=== PATIENT | female | born 1960 | race Caucasian/White ===

== ENCOUNTER 2022-10-30 14:34 | Inpatient (IN) | payer BC ==
[~2022-10-30] VITALS: Ht 162.6 cm; Wt 87.4 kg
[2022-10-30] MEDS ORDERED: NS 1,000 ML IV ONE (15:40)
[2022-10-30] MEDS ORDERED: ISOVUE-370 76% 100ML VIAL As Ordered ONE (16:06)
[2022-10-30 16:25] LABS: BASO % 0.6 % (0.0-1.0); EOS # 0.1 10^3/uL (0.0-0.5); HEMATOCRIT 40.1 % (36.0-47.0); HEMOGLOBIN 12.9 g/dl (12.0-15.5); LYMPH # 1.1 10^3/uL (1.5-5.0); MEAN CORPUSCULAR HEMOGLOBIN 29.1 pg (27.0-33.0); MEAN CORPUSCULAR HGB CONC 32.2 g/dl (32.0-36.5); MEAN CORPUSCULAR VOLUME 90.3 fl (80.0-96.0); MONO # 0.6 10^3/uL (0.0-0.8); MONO % 7.7 % (2.0-8.0); NEUTROPHILS # 5.3 10^3/uL (1.5-8.5); NEUTROPHILS % 74.6 % (36.0-66.0); PLATELET COUNT, AUTOMATED 294 10^3/uL (150-450); RED BLOOD COUNT 4.44 10^6/uL (4.00-5.40); WHITE BLOOD COUNT 7.1 10^3/uL (4.0-10.0)
[2022-10-30 16:48] LABS: ALBUMIN 3.3 G/DL (3.2-5.2); BILIRUBIN,DIRECT 0.1 MG/DL (<0.4); BILIRUBIN,TOTAL 0.6 MG/DL (0.3-1.2); TOTAL PROTEIN 6.7 G/DL (5.7-8.2)
[2022-10-30] MEDS ORDERED: ONDANSETRON 4MG 2ML VIAL IV ONE (18:10)
[2022-10-30] MEDS ORDERED: MORPHINE 2 MG/ML 1ML VIAL IV ONE (18:10)
[2022-10-30] MEDS ORDERED: oxyCODONE 5MG TAB PO PRN (18:25)
[2022-10-30] MEDS ORDERED: ONDANSETRON 4MG 2ML VIAL IV PRN (18:25)
[2022-10-30] MEDS ORDERED: MORPHINE 2 MG/ML 1ML VIAL IV PRN (18:25)
[2022-10-30] MEDS ORDERED: TEMO0.0517 TOP (19:04)
[2022-10-30] MEDS ORDERED: LEVO75TA4 PO (19:04)
[2022-10-30] MEDS ORDERED: TRET0.0540 TOP (19:04)
[2022-10-30] MEDS ORDERED: FIOR1CAP PO (19:05)
[2022-10-30] MEDS ORDERED: ACET-897 PO (19:08)
[2022-10-30] MEDS ORDERED: MAGN400T2 PO (19:08)
[2022-10-30] MEDS ORDERED: D32000CA PO (19:08)
[2022-10-30] MEDS ORDERED: SUPECAP7 PO (19:08)
[2022-10-30] MEDS ORDERED: VITA500C24 PO (19:08)
[2022-10-30] MEDS ORDERED: HOME MED LIST COMPLETE! XX SCH (19:10)
[2022-10-30 19:46] LABS: RSV AMPLIFICATION NEGATIVE (NEGATIVE)
[2022-10-30] MEDS ORDERED: LABETALOL 100MG/20ML VIAL IV ONE (21:35)
[2022-10-30] MEDS: HEPARIN SOD (PORCINE) 5000UNITS/ML 1ML VIAL/SYRINGE SC SCH (22:25)
[2022-10-30] MEDS ORDERED: TEMAZEPAM 7.5 MG CAP PO PRN (22:40)
[2022-10-30] MEDS ORDERED: **hydrALAZINE** 10 MG TAB PO PRN (22:50)
[2022-10-30 23:05] VITALS: BP 139/79
[2022-10-31] MEDS: NS 1,000 ML IV SCH ×2 (00:32→09:01)
[2022-10-31] MEDS: ACETAMINOPHEN TAB 650MG DOSE (2X325MG) PO PRN ×2 (02:54→15:50)
[2022-10-31] MEDS: HEPARIN SOD (PORCINE) 5000UNITS/ML 1ML VIAL/SYRINGE SC SCH (05:11)
[2022-10-31 05:32] VITALS: BP 134/77
[2022-10-31 06:09] LABS: HEMATOCRIT 36.8 % (36.0-47.0); HEMOGLOBIN 11.7 g/dl (12.0-15.5); MEAN CORPUSCULAR HGB CONC 31.8 g/dl (32.0-36.5); MEAN CORPUSCULAR VOLUME 91.3 fl (80.0-96.0); PLATELET COUNT, AUTOMATED 280 10^3/uL (150-450); RED BLOOD COUNT 4.03 10^6/uL (4.00-5.40); WHITE BLOOD COUNT 7.4 10^3/uL (4.0-10.0)
[2022-10-31 06:12] LABS: INR 1.04; PROTHROMBIN TIME 13.8 SECONDS (12.5-14.5)
[2022-10-31 06:13] LABS: PARTIAL THROMBOPLASTIN TIME 31.2 SECONDS (24.8-34.2)
[2022-10-31 06:31] LABS: ALBUMIN 2.8 G/DL (3.2-5.2); ALKALINE PHOSPHATASE 171 U/L (46-116); ALT/SGPT 68 U/L (7.0-40); AST/SGOT 71 U/L (<34); BILIRUBIN,TOTAL 0.5 MG/DL (0.3-1.2); BLOOD UREA NITROGEN 9 MG/DL (9-23); CALCIUM LEVEL 8.1 MG/DL (8.3-10.6); CARBON DIOXIDE LEVEL 30 MMOL/L (20-31); CHLORIDE LEVEL 105 MMOL/L (98-107); CREATININE FOR GFR 0.61 MG/DL (0.55-1.30); GLOMERULAR FILTRATION RATE > 60.0 (>45); GLUCOSE, FASTING 117 MG/DL (74-106); MAGNESIUM LEVEL 1.9 MG/DL (1.8-2.4); POTASSIUM SERUM 3.9 MMOL/L (3.5-5.1); SODIUM LEVEL 141 MMOL/L (136-145); TOTAL PROTEIN 5.8 G/DL (5.7-8.2)
[2022-10-31] MEDS ORDERED: LIDOCAINE 1% MDV 20ML VIAL As Ordered ONE (13:18)
[2022-10-31 14:00] VITALS: BP 145/79
[2022-10-31 14:45] VITALS: BP 148/80
[2022-10-31 15:30] VITALS: BP 148/76
[2022-10-31 16:00] VITALS: BP 145/74
[2022-10-31] MEDS ORDERED: ACET-897 PO (16:24)
[2022-10-31] MEDS ORDERED: OXYC-517 PO (16:24)
[2022-10-31 17:16] LABS: CA19-9 TUMOR MARKER,CARBOHYDRA 17.1 U/ML (<35.0)
== END 2022-10-31 17:45 | disposition home or self-care (01) ==
LOC: M ED 14:34 → M ED INP 18:24 → M MS5PR 23:00
PROVIDERS: ADMIT Family Medicine; ATTEND Family Medicine
PROC: 0FB13ZX Excision of Right Lobe Liver, Percutaneous Approach, Diagnostic (ICD-10-PCS; principal; 2022-10-31 13:00)
DX: K76.89 Other specified diseases of liver (principal); R65.10 Systemic inflammatory response syndrome (SIRS) of non-infectious origin without acute organ dysfunction; E03.9 Hypothyroidism, unspecified; C48.2 Malignant neoplasm of peritoneum, unspecified; E55.9 Vitamin D deficiency, unspecified; K57.90 Diverticulosis of intestine, part unspecified, without perforation or abscess without bleeding; M54.81 Occipital neuralgia; R10.32 Left lower quadrant pain; R19.03 Right lower quadrant abdominal swelling, mass and lump; N83.8 Other noninflammatory disorders of ovary, fallopian tube and broad ligament; G43.909 Migraine, unspecified, not intractable, without status migrainosus; Z79.890 Hormone replacement therapy; Z79.899 Other long term (current) drug therapy; Z88.2 Allergy status to sulfonamides

== ENCOUNTER → 2022-11-16 | Outpatient (CLI) | payer BC ==
[~2022-11-16] MED LIST: ACET-897 PO; AMLO25TA PO; D32000CA PO; FIOR1CAP PO; LEVO75TA4 PO; LIDOCAINE 1% MDV 20ML VIAL As Ordered ONE; MAGN400T2 PO; OXYC-517 PO; SUPECAP7 PO; TEMO0.0517 TOP; TRET0.0540 TOP; VITA500C24 PO
[2022-11-16 09:00] VITALS: BP 130/65
== END ==
LOC: M IRPRO 08:00
PROVIDERS: ATTEND Internal Medicine Medical Oncology
DX: R22.1 Localized swelling, mass and lump, neck (principal)

== ENCOUNTER → 2022-11-22 | Outpatient (CLI) | payer BC ==
[~2022-11-22] MED LIST changes: +ISOVUE-370 76% 100ML VIAL As Ordered ONE; -LIDOCAINE 1% MDV 20ML VIAL As Ordered ONE
== END ==
LOC: M RAD 14:30
PROVIDERS: ATTEND Internal Medicine Medical Oncology
DX: K76.89 Other specified diseases of liver (principal)

== ENCOUNTER → 2022-11-29 | Outpatient (CLI) | payer BC ==
[~2022-11-29] MED LIST changes: -ISOVUE-370 76% 100ML VIAL As Ordered ONE
[2022-11-29 11:28] LABS: ALBUMIN 3.4 G/DL (3.2-5.2); ALKALINE PHOSPHATASE 98 U/L (46-116); ALT/SGPT 17 U/L (7.0-40); AST/SGOT 18 U/L (<34); BILIRUBIN,DIRECT 0.2 MG/DL (<0.4); BILIRUBIN,TOTAL 0.5 MG/DL (0.3-1.2); TOTAL PROTEIN 6.6 G/DL (5.7-8.2)
[2022-11-29 11:38] LABS: HEPATITIS B SURFACE ANTIGEN NEGATIVE (NEGATIVE)
== END ==
LOC: M LAB 09:36
PROVIDERS: ATTEND Internal Medicine Gastroenterology
DX: R94.5 Abnormal results of liver function studies (principal)

== ENCOUNTER → 2022-12-25 | Outpatient (CLI) | payer BC ==
[~2022-12-25] MED LIST changes: +DIGECAP7 PO; +GING1CAP PO; +NAPR220C23 PO; +PROBCAP14 PO; +RA M200C4 PO; +TURM500C PO; +VITA1CAP20 PO; +VITA200038 PO; +VITA400T26 PO
== END ==
LOC: M LABSMTC 11:28
PROVIDERS: ATTEND Anesthesiology
DX: Z01.812 Encounter for preprocedural laboratory examination (principal); Z11.52 Encounter for screening for COVID-19

== ENCOUNTER → 2022-12-27 | Outpatient (CLI) | payer BC ==
[~2022-12-27] MED LIST changes: +FAMO20TA PO; +LIDOCAINE 1% MDV 20ML VIAL As Ordered ONE; +MIDAZOLAM INJ 2MG/2ML VIAL As Ordered ONE; +NS 1,000 ML IV SCH; +ceFAZolin 2 GM/D5W 50 ML IV BAG As Ordered ONE; +ceFAZolin SOD 2 GM in IV 1 EA IV ONE; +diphenhydrAMINE 50MG/ML VIAL As Ordered ONE; +fentaNYL 100 MCG/2 ML INJECTION As Ordered ONE
[2022-12-27 14:53] VITALS: BP 142/77
== END ==
LOC: M IRPRO 10:38
PROVIDERS: ATTEND Internal Medicine Medical Oncology
DX: C80.1 Malignant (primary) neoplasm, unspecified (principal)
CPT/HCPCS: 36561; 99152; 99153; C1769; C1788; C1894; J0690; J1200; J2250; J3010

== ENCOUNTER → 2022-12-29 | Outpatient (REF) | payer BC ==
[~2022-12-29] MED LIST changes: -LIDOCAINE 1% MDV 20ML VIAL As Ordered ONE; -MIDAZOLAM INJ 2MG/2ML VIAL As Ordered ONE; -NS 1,000 ML IV SCH; +ONDA8TAB8 PO; +PROC10TA5 PO; -ceFAZolin 2 GM/D5W 50 ML IV BAG As Ordered ONE; -ceFAZolin SOD 2 GM in IV 1 EA IV ONE; -diphenhydrAMINE 50MG/ML VIAL As Ordered ONE; -fentaNYL 100 MCG/2 ML INJECTION As Ordered ONE
[2022-12-29 17:18] LABS: THYROID STIMULATING HORMONE 5.186 uIU/ML (0.55-4.78)
[2022-12-29 17:19] LABS: FREE T4 1.27 NG/DL (0.89-1.76)
[2022-12-29 17:51] LABS: HEMOGLOBIN A1c 5.8 % (4.0-6.0)
== END ==
LOC: M LAB REF 16:12
PROVIDERS: ATTEND Nurse Practitioner Family
DX: Z68.32 Body mass index [BMI] 32.0-32.9, adult (principal)

== ENCOUNTER → 2023-01-16 | Outpatient (CLI) | payer BC | LOC: M IRPRO 13:17 | PROVIDERS: ATTEND Internal Medicine Medical Oncology | DX: R18.8 Other ascites (principal); R93.2 Abnormal findings on diagnostic imaging of liver and biliary tract ==

== ENCOUNTER → 2023-01-23 | Outpatient (POV) | payer BC ==
[~2023-01-23] VITALS: Ht 162.6 cm; Wt 82.0 kg
[~2023-01-23] MED LIST changes: +HYDR25SU61; +LEVO100T5 PO; +NEUR100C PO
[2023-01-23 08:20] VITALS: BP 140/80
== END ==
LOC: M IRPOV 07:58
PROVIDERS: ATTEND Radiology Diagnostic Radiology
DX: Z45.2 Encounter for adjustment and management of vascular access device (principal); Z88.1 Allergy status to other antibiotic agents; Z88.2 Allergy status to sulfonamides

== ENCOUNTER → 2023-02-13 | Outpatient (POV) | payer BC ==
[~2023-02-13] VITALS: Ht 162.6 cm; Wt 82.7 kg
[~2023-02-13] MED LIST changes: +CLAR10CA3 PO; +MAGICMW SSP
[2023-02-13 12:35] VITALS: BP 154/82
== END ==
LOC: M IRPOV 12:21
PROVIDERS: ATTEND Radiology Diagnostic Radiology
DX: Z45.2 Encounter for adjustment and management of vascular access device (principal); Z88.2 Allergy status to sulfonamides

== ENCOUNTER → 2023-02-27 | Outpatient (CLI) | payer BC ==
[~2023-02-27] MED LIST changes: +GASTROGRAFIN SOLUTION 30ML As Ordered ONE; +ISOVUE-370 76% 100ML VIAL As Ordered ONE
== END ==
LOC: M RAD 11:39
PROVIDERS: ATTEND Internal Medicine Medical Oncology
DX: C48.2 Malignant neoplasm of peritoneum, unspecified (principal)
CPT/HCPCS: 71260; 74177; Q9963; Q9967

== ENCOUNTER → 2023-04-09 | Outpatient (REF) | payer BC ==
[~2023-04-09] MED LIST changes: +DEXA4TA PO; -GASTROGRAFIN SOLUTION 30ML As Ordered ONE; -ISOVUE-370 76% 100ML VIAL As Ordered ONE
== END ==
LOC: M LAB REF 16:39
PROVIDERS: ATTEND Nurse Practitioner Family
DX: E03.9 Hypothyroidism, unspecified (principal); R73.01 Impaired fasting glucose

== ENCOUNTER → 2023-04-23 | Outpatient (CLI) | payer BC ==
[~2023-04-23] MED LIST changes: +GASTROGRAFIN SOLUTION 30ML As Ordered ONE; +ISOVUE-370 76% 100ML VIAL As Ordered ONE; +METF-838 PO
== END ==
LOC: M RAD 08:24
PROVIDERS: ATTEND Internal Medicine Hematology & Oncology
DX: C48.2 Malignant neoplasm of peritoneum, unspecified (principal)
CPT/HCPCS: 71260; 74177; Q9963; Q9967

== ENCOUNTER → 2023-05-08 | Outpatient (REF) | payer BC ==
[~2023-05-08] MED LIST changes: -GASTROGRAFIN SOLUTION 30ML As Ordered ONE; -ISOVUE-370 76% 100ML VIAL As Ordered ONE
== END ==
LOC: M LAB REF 17:52
PROVIDERS: ATTEND Nurse Practitioner Family
DX: E83.42 Hypomagnesemia (principal)

== ENCOUNTER → 2023-07-09 | Outpatient (REF) | payer BC, MEDICARE ==
[~2023-07-09] MED LIST changes: -HYDR25SU61; +HYDR25SU61 PR
== END ==
LOC: M LAB REF 16:28
PROVIDERS: ATTEND Nurse Practitioner Family
DX: E11.9 Type 2 diabetes mellitus without complications (principal); E03.9 Hypothyroidism, unspecified

== ENCOUNTER → 2023-08-22 | Outpatient (CLI) | payer MEDICARE, BC ==
[~2023-08-22] MED LIST changes: +GASTROGRAFIN SOLUTION 30ML ONE; +ISOVUE-370 76% 100ML VIAL ONE
== END ==
LOC: M PLAIMG 09:10
PROVIDERS: ATTEND Internal Medicine Hematology & Oncology
DX: C48.2 Malignant neoplasm of peritoneum, unspecified (principal)
CPT/HCPCS: 71260; 74177; Q9963; Q9967

== ENCOUNTER 2023-10-12 18:00 | Emergency (ER) | payer MEDICARE, BC ==
[~2023-10-12] VITALS: Ht 162.6 cm; Wt 80.7 kg
[~2023-10-12 18:00] MED LIST changes: -GASTROGRAFIN SOLUTION 30ML ONE; -ISOVUE-370 76% 100ML VIAL ONE
[2023-10-12 18:01] VITALS: TEMP 98.5
[2023-10-12] MEDS ORDERED: ISOVUE-370 76% 100ML VIAL As Ordered ONE (18:53)
[2023-10-12 19:00] VITALS: BP 154/77; O2SAT 97
[2023-10-12] MEDS ORDERED: AMOX875T2 PO (20:10)
[2023-10-12] MEDS ORDERED: AUGMENTIN 875 MG TAB PO ONE (20:10)
== END 2023-10-12 20:22 | disposition home or self-care (01) ==
LOC: M ED 18:00
DX: K57.32 Diverticulitis of large intestine without perforation or abscess without bleeding (principal); I10 Essential (primary) hypertension; K21.9 Gastro-esophageal reflux disease without esophagitis; E03.9 Hypothyroidism, unspecified; Z79.899 Other long term (current) drug therapy; Z88.2 Allergy status to sulfonamides
CPT/HCPCS: 74177; 80053; 83690; 85025; 99284; Q9967

== ENCOUNTER → 2023-10-31 | Outpatient (CLI) | payer MEDICARE, BC ==
[~2023-10-31] MED LIST changes: +AMOX875T2 PO; +METO5TAB2 PO; +PRED5PAK2 PO
== END ==
LOC: M WHC 14:33
PROVIDERS: ATTEND Nurse Practitioner Family
DX: Z12.31 Encounter for screening mammogram for malignant neoplasm of breast (principal)

== ENCOUNTER 2023-11-06 19:51 | Inpatient (IN) | payer MEDICARE, BC ==
[~2023-11-06] VITALS: Ht 165.1 cm; Wt 78.0 kg
[2023-11-06 20:50] LABS: BASO % 0.3 % (0.0-1.0); EOS % 0.5 % (0.0-3.0); HEMATOCRIT 40.6 % (36.0-47.0); LYMPH # 0.9 10^3/uL (1.5-5.0); LYMPH % 15.1 % (24.0-44.0); MEAN CORPUSCULAR HEMOGLOBIN 32.8 pg (27.0-33.0); MEAN CORPUSCULAR HGB CONC 34.5 g/dl (32.0-36.5); MEAN CORPUSCULAR VOLUME 95.1 fl (80.0-96.0); MONO # 0.6 10^3/uL (0.0-0.8); MONO % 10.1 % (2.0-8.0); NEUTROPHILS # 4.3 10^3/uL (1.5-8.5); NEUTROPHILS % 73.7 % (36.0-66.0); PLATELET COUNT, AUTOMATED 210 10^3/uL (150-450); RED BLOOD COUNT 4.27 10^6/uL (4.00-5.40); WHITE BLOOD COUNT 5.8 10^3/uL (4.0-10.0)
[2023-11-06] MEDS: ONDANSETRON 4MG 2ML VIAL IV ONE (21:00)
[2023-11-06] MEDS: PERCOCET 5MG/325MG TAB PO ONE (21:00)
[2023-11-06 21:18] LABS: LIPASE 18 U/L (12-53)
[2023-11-06 21:20] LABS: ALBUMIN 3.6 G/DL (3.2-5.2); ALKALINE PHOSPHATASE 100 U/L (46-116); ALT/SGPT 84 U/L (7.0-40); AST/SGOT 54 U/L (<34); BLOOD UREA NITROGEN 16 MG/DL (9-23); CARBON DIOXIDE LEVEL 26 MMOL/L (20-31); CHLORIDE LEVEL 101 MMOL/L (98-107); CREATININE FOR GFR 0.68 MG/DL (0.55-1.30); GLOMERULAR FILTRATION RATE > 60.0 (>45); GLUCOSE, FASTING 113 MG/DL (74-106); POTASSIUM SERUM 3.7 MMOL/L (3.5-5.1); SODIUM LEVEL 136 MMOL/L (136-145); TOTAL PROTEIN 6.6 G/DL (5.7-8.2)
[2023-11-06 21:26] LABS: RSV AMPLIFICATION NEGATIVE (NEGATIVE)
[2023-11-06] MEDS: fentaNYL 100 MCG/2 ML INJECTION IV ONE (22:30)
[2023-11-06] MEDS: GASTROGRAFIN SOLUTION 30ML PO SCH (22:30)
[2023-11-07] MEDS: PIPERACILLIN/TAZOBACTAM SOD 4.5 GM in D5W MINI-BAG PLUS 50 ML IV ONE (01:00)
[2023-11-07] MEDS ORDERED: FAMO20TA5 PO (01:22)
[2023-11-07] MEDS ORDERED: AMLO2.5T3 PO (01:22)
[2023-11-07] MEDS ORDERED: SYNT100T PO (01:22)
[2023-11-07] MEDS ORDERED: METF-838 PO (01:22)
[2023-11-07] MEDS ORDERED: HOME MED LIST COMPLETE! XX SCH (01:25)
[2023-11-07] MEDS: PROCHLORPERAZINE 10MG 2ML VIAL IV STA (01:26)
[2023-11-07] MEDS: NS 1,000 ML IV SCH ×2 (03:54→10:55)
[2023-11-07] MEDS: HYDROMORPHONE HCL 0.5 MG/ 0.5 ML SYRINGE IV PRN (04:09)
[2023-11-07 04:30] VITALS: BP 164/95; TEMP 97.2; O2SAT 97
[2023-11-07] MEDS: PIPERACILLIN/TAZOBACTAM SOD 3.375 GM in D5W MINI-BAG PLUS 50 ML IV SCH (06:06)
[2023-11-07] MEDS: LEVOTHYROXINE 100MCG TABLET (0.1MG) PO SCH (06:06)
[2023-11-07] MEDS: HEPARIN SOD (PORCINE) 5000UNITS/ML 1ML VIAL/SYRINGE SC SCH (06:06)
[2023-11-07 06:10] VITALS: BP 142/80
[2023-11-07] MEDS ORDERED: GLUCAGON INJ 1MG VIAL SC PRN (06:25)
[2023-11-07] MEDS ORDERED: DEXTROSE 50% 50ML SYRINGE IV PRN (06:25)
[2023-11-07] MEDS ORDERED: GLUCOSE 4GM CHEW TABLET PO PRN (06:25)
[2023-11-07] MEDS: INSULIN LISPRO (NovoLOG) PER UNIT SC SCH ×2 (07:30→21:00)
[2023-11-07 07:39] LABS: ALBUMIN 3.3 G/DL (3.2-5.2); ALKALINE PHOSPHATASE 96 U/L (46-116); ALT/SGPT 76 U/L (7.0-40); AST/SGOT 51 U/L (<34); BILIRUBIN,TOTAL 1.3 MG/DL (0.3-1.2); BLOOD UREA NITROGEN 15 MG/DL (9-23); CALCIUM LEVEL 8.7 MG/DL (8.3-10.6); CARBON DIOXIDE LEVEL 29 MMOL/L (20-31); CHLORIDE LEVEL 99 MMOL/L (98-107); CREATININE FOR GFR 0.72 MG/DL (0.55-1.30); GLOMERULAR FILTRATION RATE > 60.0 (>45); GLUCOSE, FASTING 128 MG/DL (74-106); POTASSIUM SERUM 3.7 MMOL/L (3.5-5.1); SODIUM LEVEL 136 MMOL/L (136-145); TOTAL PROTEIN 6.2 G/DL (5.7-8.2)
[2023-11-07] MEDS: FAMOTIDINE 20 MG TAB PO PRN (09:33)
[2023-11-07] MEDS ORDERED: MORPHINE 2 MG/ML 1ML VIAL IV PRN (10:55)
[2023-11-07] MEDS ORDERED: ISOVUE-370 76% 100ML VIAL As Ordered ONE (11:09)
[2023-11-07] MEDS: ONDANSETRON 4MG 2ML VIAL IV PRN (12:10)
[2023-11-08 07:06] LABS: ALBUMIN 2.8 G/DL (3.2-5.2); ALKALINE PHOSPHATASE 75 U/L (46-116); ALT/SGPT 48 U/L (7.0-40); AST/SGOT 19 U/L (<34); BILIRUBIN,TOTAL 0.7 MG/DL (0.3-1.2); BLOOD UREA NITROGEN 11 MG/DL (9-23); CALCIUM LEVEL 7.9 MG/DL (8.3-10.6); CARBON DIOXIDE LEVEL 27 MMOL/L (20-31); CHLORIDE LEVEL 107 MMOL/L (98-107); CREATININE FOR GFR 0.71 MG/DL (0.55-1.30); GLOMERULAR FILTRATION RATE > 60.0 (>45); GLUCOSE, FASTING 73 MG/DL (74-106); MAGNESIUM LEVEL 1.7 MG/DL (1.8-2.4); POTASSIUM SERUM 3.7 MMOL/L (3.5-5.1); SODIUM LEVEL 142 MMOL/L (136-145)
[2023-11-08 14:18] VITALS: BP 145/80; TEMP 97.5; O2SAT 96
[2023-11-08 19:59] VITALS: BP 124/67; TEMP 97.7; O2SAT 97
[2023-11-09 05:30] VITALS: BP 122/64; TEMP 97.5; O2SAT 95
[2023-11-09 07:12] LABS: ALBUMIN 2.8 G/DL (3.2-5.2); ALKALINE PHOSPHATASE 74 U/L (46-116); ALT/SGPT 34 U/L (7.0-40); AST/SGOT 11 U/L (<34); BILIRUBIN,TOTAL 0.4 MG/DL (0.3-1.2); BLOOD UREA NITROGEN < 5 MG/DL (9-23); CARBON DIOXIDE LEVEL 30 MMOL/L (20-31); CHLORIDE LEVEL 107 MMOL/L (98-107); CREATININE FOR GFR 0.56 MG/DL (0.55-1.30); GLOMERULAR FILTRATION RATE > 60.0 (>45); GLUCOSE, FASTING 113 MG/DL (74-106); MAGNESIUM LEVEL 1.6 MG/DL (1.8-2.4); POTASSIUM SERUM 3.6 MMOL/L (3.5-5.1); SODIUM LEVEL 142 MMOL/L (136-145); TOTAL PROTEIN 5.2 G/DL (5.7-8.2)
[2023-11-09] MEDS: MAG SULF 1GM/100ML (MAG RUN) 1 GM in IV 1 EA IV SCH (08:13)
[2023-11-09 08:19] VITALS: BP 128/63
[2023-11-09] MEDS: BISACODYL 10MG SUPP PR ONE (13:03)
[2023-11-09 14:00] VITALS: BP 142/85; TEMP 97.5; O2SAT 98
[2023-11-09] MEDS: DOCUSATE SODIUM 100MG CAPSULE PO SCH (14:12)
[2023-11-09 21:21] VITALS: BP 154/87; TEMP 97.5; O2SAT 97
[2023-11-09] MEDS: MIRALAX *UNIT DOSE* 17GM PACKET PO PRN (22:12)
[2023-11-10 06:00] VITALS: BP 132/67; TEMP 97.3; O2SAT 95
[2023-11-10 06:12] LABS: BASO % 0.3 % (0.0-1.0); EOS # 0.1 10^3/uL (0.0-0.5); EOS % 1.3 % (0.0-3.0); HEMATOCRIT 35.5 % (36.0-47.0); HEMOGLOBIN 12.2 g/dl (12.0-15.5); LYMPH # 0.9 10^3/uL (1.5-5.0); LYMPH % 23.3 % (24.0-44.0); MEAN CORPUSCULAR HEMOGLOBIN 32.3 pg (27.0-33.0); MEAN CORPUSCULAR HGB CONC 34.4 g/dl (32.0-36.5); MEAN CORPUSCULAR VOLUME 93.9 fl (80.0-96.0); MONO # 0.4 10^3/uL (0.0-0.8); MONO % 9.7 % (2.0-8.0); NEUTROPHILS # 2.5 10^3/uL (1.5-8.5); NEUTROPHILS % 64.6 % (36.0-66.0); PLATELET COUNT, AUTOMATED 189 10^3/uL (150-450); RED BLOOD COUNT 3.78 10^6/uL (4.00-5.40); WHITE BLOOD COUNT 3.9 10^3/uL (4.0-10.0)
[2023-11-10 06:30] LABS: BLOOD UREA NITROGEN < 5 MG/DL (9-23); CALCIUM LEVEL 8.4 MG/DL (8.3-10.6); CARBON DIOXIDE LEVEL 30 MMOL/L (20-31); CHLORIDE LEVEL 106 MMOL/L (98-107); CREATININE FOR GFR 0.56 MG/DL (0.55-1.30); GLOMERULAR FILTRATION RATE > 60.0 (>45); GLUCOSE, FASTING 121 MG/DL (74-106); MAGNESIUM LEVEL 1.8 MG/DL (1.8-2.4); POTASSIUM SERUM 3.3 MMOL/L (3.5-5.1); SODIUM LEVEL 141 MMOL/L (136-145)
[2023-11-10] MEDS: POTASSIUM CHLORIDE 10MEQ SR TABLET PO ONE (08:45)
[2023-11-10] MEDS: FLEET ENEMA PR SCH (10:15)
[2023-11-10 14:00] VITALS: BP 135/67; TEMP 97.9; O2SAT 96
[2023-11-10] MEDS: oxyCODONE 5MG TAB PO ONE (17:50)
[2023-11-10] MEDS: MIRALAX *UNIT DOSE* 17GM PACKET PO ONE (17:51)
[2023-11-10 20:38] VITALS: BP 134/83; TEMP 97.3; O2SAT 96
[2023-11-10] MEDS: GASTROGRAFIN SOLUTION 30ML PO SCH (21:35)
[2023-11-10] MEDS: DOCUSATE SODIUM 100MG CAPSULE PO SCH (22:52)
[2023-11-10] MEDS: SENOKOT S TAB PO SCH (22:52)
[2023-11-10] MEDS: BISACODYL 10MG SUPP PR SCH (23:11)
[2023-11-11] MEDS: MORPHINE 2 MG/ML 1ML VIAL IV ONE (00:41)
[2023-11-11] MEDS: SODIUM CHLORIDE 0.9% INJ 10 ML SYR IV PRN (00:42)
[2023-11-11] MEDS ORDERED: MORPHINE 2 MG/ML 1ML VIAL IV PRN (03:45)
[2023-11-11] MEDS ORDERED: ACETAMINOPHEN *IV* 1,000 MG in IV 1 EA IV PRN (03:50)
[2023-11-11] MEDS: MORPHINE 2 MG/ML 1ML VIAL IV PRN (04:01)
[2023-11-11 06:00] VITALS: BP 149/90; TEMP 97.3; O2SAT 91
[2023-11-11 06:39] LABS: BASO % 0.4 % (0.0-1.0); EOS % 0.7 % (0.0-3.0); HEMATOCRIT 39.5 % (36.0-47.0); HEMOGLOBIN 13.6 g/dl (12.0-15.5); LYMPH % 20.7 % (24.0-44.0); MEAN CORPUSCULAR HEMOGLOBIN 32.5 pg (27.0-33.0); MEAN CORPUSCULAR HGB CONC 34.4 g/dl (32.0-36.5); MEAN CORPUSCULAR VOLUME 94.5 fl (80.0-96.0); MONO # 0.5 10^3/uL (0.0-0.8); MONO % 10.9 % (2.0-8.0); NEUTROPHILS # 3.1 10^3/uL (1.5-8.5); NEUTROPHILS % 66.4 % (36.0-66.0); PLATELET COUNT, AUTOMATED 218 10^3/uL (150-450); RED BLOOD COUNT 4.18 10^6/uL (4.00-5.40); WHITE BLOOD COUNT 4.6 10^3/uL (4.0-10.0)
[2023-11-11 07:03] LABS: BLOOD UREA NITROGEN 5 MG/DL (9-23); CARBON DIOXIDE LEVEL 30 MMOL/L (20-31); CHLORIDE LEVEL 104 MMOL/L (98-107); CREATININE FOR GFR 0.62 MG/DL (0.55-1.30); GLOMERULAR FILTRATION RATE > 60.0 (>45); GLUCOSE, FASTING 117 MG/DL (74-106); MAGNESIUM LEVEL 1.7 MG/DL (1.8-2.4); POTASSIUM SERUM 3.7 MMOL/L (3.5-5.1); SODIUM LEVEL 141 MMOL/L (136-145)
[2023-11-11] MEDS: PANTOPRAZOLE 40MG VIAL IV SCH (09:37)
[2023-11-11] MEDS: SODIUM CHLORIDE 0.9% INJ 10 ML SYR IV SCH (09:38)
[2023-11-11] MEDS: LR 1,000 ML IV SCH (09:39)
[2023-11-11 10:00] VITALS: BP 158/99; TEMP 97.5; O2SAT 95
[2023-11-11] MEDS: ACETAMINOPHEN 650MG SUPP PR PRN (12:16)
[2023-11-11 14:00] VITALS: BP 120/66; TEMP 97.5; O2SAT 91
[2023-11-11 18:00] VITALS: BP 133/76; TEMP 97.5; O2SAT 93
[2023-11-11 20:00] VITALS: BP 133/77; TEMP 97.7; O2SAT 93
[2023-11-11] MEDS: HEPARIN SOD (PORCINE) 5000UNITS/ML 1ML VIAL/SYRINGE SC SCH (20:17)
[2023-11-12] VITALS: BP 134/79; TEMP 97.2; O2SAT 93
[2023-11-12 04:00] VITALS: BP 156/96; TEMP 97.5; O2SAT 94
[2023-11-12 06:22] LABS: BASO % 0.6 % (0.0-1.0); EOS # 0.1 10^3/uL (0.0-0.5); EOS % 1.9 % (0.0-3.0); HEMATOCRIT 37.1 % (36.0-47.0); HEMOGLOBIN 12.6 g/dl (12.0-15.5); LYMPH # 0.8 10^3/uL (1.5-5.0); LYMPH % 26.5 % (24.0-44.0); MEAN CORPUSCULAR HEMOGLOBIN 32.6 pg (27.0-33.0); MEAN CORPUSCULAR VOLUME 95.9 fl (80.0-96.0); MONO # 0.4 10^3/uL (0.0-0.8); MONO % 12.6 % (2.0-8.0); NEUTROPHILS # 1.8 10^3/uL (1.5-8.5); NEUTROPHILS % 57.8 % (36.0-66.0); PLATELET COUNT, AUTOMATED 200 10^3/uL (150-450); RED BLOOD COUNT 3.87 10^6/uL (4.00-5.40); WHITE BLOOD COUNT 3.1 10^3/uL (4.0-10.0)
[2023-11-12 06:56] LABS: BLOOD UREA NITROGEN 10 MG/DL (9-23); CALCIUM LEVEL 8.4 MG/DL (8.3-10.6); CARBON DIOXIDE LEVEL 31 MMOL/L (20-31); CHLORIDE LEVEL 105 MMOL/L (98-107); CREATININE FOR GFR 0.62 MG/DL (0.55-1.30); GLOMERULAR FILTRATION RATE > 60.0 (>45); GLUCOSE, FASTING 92 MG/DL (74-106); MAGNESIUM LEVEL 1.6 MG/DL (1.8-2.4); POTASSIUM SERUM 3.5 MMOL/L (3.5-5.1); SODIUM LEVEL 142 MMOL/L (136-145)
[2023-11-12] MEDS: KETOROLAC 30 MG/ML 1ML VIAL IV PRN (11:02)
[2023-11-12] MEDS: MAG SULF 1GM/100ML (MAG RUN) 1 GM in IV 1 EA IV SCH (11:04)
[2023-11-12 14:00] VITALS: BP 139/80; TEMP 97.7; O2SAT 93
[2023-11-13 06:00] VITALS: BP 137/70; TEMP 97.3
[2023-11-13 06:19] LABS: BASO % 0.3 % (0.0-1.0); EOS % 0.8 % (0.0-3.0); HEMATOCRIT 33.7 % (36.0-47.0); HEMOGLOBIN 11.5 g/dl (12.0-15.5); LYMPH # 0.6 10^3/uL (1.5-5.0); LYMPH % 14.9 % (24.0-44.0); MEAN CORPUSCULAR HGB CONC 34.1 g/dl (32.0-36.5); MEAN CORPUSCULAR VOLUME 96.8 fl (80.0-96.0); MONO # 0.4 10^3/uL (0.0-0.8); MONO % 10.1 % (2.0-8.0); NEUTROPHILS # 2.7 10^3/uL (1.5-8.5); NEUTROPHILS % 73.4 % (36.0-66.0); PLATELET COUNT, AUTOMATED 185 10^3/uL (150-450); RED BLOOD COUNT 3.48 10^6/uL (4.00-5.40); WHITE BLOOD COUNT 3.7 10^3/uL (4.0-10.0)
[2023-11-13 06:53] LABS: BLOOD UREA NITROGEN 13 MG/DL (9-23); CALCIUM LEVEL 8.1 MG/DL (8.3-10.6); CARBON DIOXIDE LEVEL 31 MMOL/L (20-31); CHLORIDE LEVEL 105 MMOL/L (98-107); CREATININE FOR GFR 0.62 MG/DL (0.55-1.30); GLOMERULAR FILTRATION RATE > 60.0 (>45); GLUCOSE, FASTING 81 MG/DL (74-106); MAGNESIUM LEVEL 1.8 MG/DL (1.8-2.4); POTASSIUM SERUM 3.9 MMOL/L (3.5-5.1); SODIUM LEVEL 143 MMOL/L (136-145)
[2023-11-13 08:00] VITALS: BP 145/82; TEMP 97.5; O2SAT 95
[2023-11-13 11:30] VITALS: BP 138/74; TEMP 97.5; O2SAT 96
[2023-11-13] MEDS: D5W/0.9% SODIUM CHLORIDE 1,000 ML IV SCH (12:34)
[2023-11-13 13:30] VITALS: BP 144/82; TEMP 97.9; O2SAT 96
[2023-11-13] MEDS ORDERED: Ketorolac Tromethamine IV (13:57)
[2023-11-13] MEDS ORDERED: ONDA4INJ4 IV (13:57)
[2023-11-13] MEDS ORDERED: MORP2INJ4 IV (13:57)
[2023-11-13] MEDS ORDERED: PANT40IN4 IV (13:57)
[2023-11-13] MEDS ORDERED: ACET65SU PR (13:57)
[2023-11-13 22:00] VITALS: BP 154/80; TEMP 97.7
[2023-11-14 06:00] VITALS: BP 160/99; TEMP 97.7
[2023-11-14 06:20] LABS: BASO % 0.3 % (0.0-1.0); EOS % 0.8 % (0.0-3.0); HEMATOCRIT 36.2 % (36.0-47.0); HEMOGLOBIN 12.5 g/dl (12.0-15.5); LYMPH # 0.5 10^3/uL (1.5-5.0); LYMPH % 12.9 % (24.0-44.0); MEAN CORPUSCULAR HEMOGLOBIN 33.1 pg (27.0-33.0); MEAN CORPUSCULAR HGB CONC 34.5 g/dl (32.0-36.5); MEAN CORPUSCULAR VOLUME 95.8 fl (80.0-96.0); MONO # 0.5 10^3/uL (0.0-0.8); MONO % 11.6 % (2.0-8.0); NEUTROPHILS # 2.9 10^3/uL (1.5-8.5); NEUTROPHILS % 73.6 % (36.0-66.0); PLATELET COUNT, AUTOMATED 191 10^3/uL (150-450); RED BLOOD COUNT 3.78 10^6/uL (4.00-5.40)
[2023-11-14 06:46] LABS: BLOOD UREA NITROGEN 9 MG/DL (9-23); CALCIUM LEVEL 7.9 MG/DL (8.3-10.6); CARBON DIOXIDE LEVEL 28 MMOL/L (20-31); CHLORIDE LEVEL 102 MMOL/L (98-107); CREATININE FOR GFR 0.48 MG/DL (0.55-1.30); GLOMERULAR FILTRATION RATE > 60.0 (>45); GLUCOSE, FASTING 147 MG/DL (74-106); MAGNESIUM LEVEL 1.5 MG/DL (1.8-2.4); SODIUM LEVEL 137 MMOL/L (136-145)
[2023-11-14] MEDS: MAG SULF 1GM/100ML (MAG RUN) 1 GM in IV 1 EA IV SCH (07:53)
[2023-11-14 08:03] VITALS: BP 142/72
[2023-11-14] MEDS: KCL 10MEQ/100ML SWI (KRUN) 10 MEQ in IV 1 EA IV SCH (10:14)
[2023-11-14 10:45] VITALS: BP 137/72; TEMP 97.7; O2SAT 95
[2023-11-14 14:16] VITALS: BP 150/91; TEMP 97.7; O2SAT 92
== END 2023-11-14 17:00 | disposition other institution (70) | DRG 389 ==
LOC: M ED 19:51 → M ED INP 11-07 03:26 → ENRESERV 11-07 03:56 → M MS5PR 11-07 04:42
PROVIDERS: ADMIT Internal Medicine; ATTEND Internal Medicine Nephrology
DX: K56.690 Other partial intestinal obstruction (principal); C78.6 Secondary malignant neoplasm of retroperitoneum and peritoneum; C78.7 Secondary malignant neoplasm of liver and intrahepatic bile duct; Z85.43 Personal history of malignant neoplasm of ovary; Z92.21 Personal history of antineoplastic chemotherapy; I10 Essential (primary) hypertension; K21.9 Gastro-esophageal reflux disease without esophagitis; I88.0 Nonspecific mesenteric lymphadenitis; R74.01 Elevation of levels of liver transaminase levels; E83.42 Hypomagnesemia; K44.9 Diaphragmatic hernia without obstruction or gangrene; E87.6 Hypokalemia; E03.9 Hypothyroidism, unspecified; E11.9 Type 2 diabetes mellitus without complications; Z90.49 Acquired absence of other specified parts of digestive tract; Z90.79 Acquired absence of other genital organ(s); Z79.890 Hormone replacement therapy; Z79.84 Long term (current) use of oral hypoglycemic drugs; Z79.899 Other long term (current) drug therapy; Z88.2 Allergy status to sulfonamides; Z20.822 Contact with and (suspected) exposure to COVID-19

== ENCOUNTER 2023-11-23 11:15 | Emergency (ER) | payer MEDICARE, BC ==
[~2023-11-23] VITALS: Ht 162.6 cm; Wt 73.2 kg
[~2023-11-23 11:15] MED LIST changes: +ACET65SU PR; +AMLO2.5T3 PO; +FAMO20TA5 PO; +Ketorolac Tromethamine IV; +MORP2INJ4 IV; +ONDA4INJ4 IV; +PANT40IN4 IV; +SYNT100T PO
[2023-11-23 11:16] VITALS: TEMP 96.9
[2023-11-23 12:00] LABS: BASO % 0.2 % (0.0-1.0); HEMATOCRIT 43.3 % (36.0-47.0); HEMOGLOBIN 15.6 g/dl (12.0-15.5); LYMPH # 0.6 10^3/uL (1.5-5.0); LYMPH % 11.3 % (24.0-44.0); MEAN CORPUSCULAR HEMOGLOBIN 33.2 pg (27.0-33.0); MEAN CORPUSCULAR VOLUME 92.1 fl (80.0-96.0); MONO # 0.5 10^3/uL (0.0-0.8); MONO % 9.2 % (2.0-8.0); NEUTROPHILS # 4.1 10^3/uL (1.5-8.5); NEUTROPHILS % 78.3 % (36.0-66.0); PLATELET COUNT, AUTOMATED 221 10^3/uL (150-450); WHITE BLOOD COUNT 5.2 10^3/uL (4.0-10.0)
[2023-11-23] MEDS: NS 1,000 ML IV ONE (12:17)
[2023-11-23] MEDS: GASTROGRAFIN SOLUTION 30ML PO SCH (12:19)
[2023-11-23] MEDS: MORPHINE 4 MG/ML 1ML VIAL IV ONE ×2 (12:19→16:59)
[2023-11-23 12:28] LABS: LIPASE 16 U/L (12-53)
[2023-11-23 12:30] LABS: ALBUMIN 3.3 G/DL (3.2-5.2); ALKALINE PHOSPHATASE 104 U/L (46-116); ALT/SGPT 33 U/L (7.0-40); AST/SGOT 42 U/L (<34); BILIRUBIN,DIRECT 0.2 MG/DL (<0.4); BILIRUBIN,TOTAL 0.3 MG/DL (0.3-1.2); BLOOD UREA NITROGEN 43 MG/DL (9-23); CALCIUM LEVEL 8.5 MG/DL (8.3-10.6); CARBON DIOXIDE LEVEL 21 MMOL/L (20-31); CHLORIDE LEVEL 102 MMOL/L (98-107); CREATININE FOR GFR 0.85 MG/DL (0.55-1.30); GLOMERULAR FILTRATION RATE > 60.0 (>45); GLUCOSE, FASTING 181 MG/DL (74-106); POTASSIUM SERUM 3.6 MMOL/L (3.5-5.1); SODIUM LEVEL 138 MMOL/L (136-145); TOTAL PROTEIN 6.1 G/DL (5.7-8.2)
[2023-11-23] MEDS: METOCLOPRAMIDE INJ 10MG/2ML VIAL IV ONE (12:45)
[2023-11-23] MEDS ORDERED: ISOVUE-370 76% 100ML VIAL As Ordered ONE (12:51)
[2023-11-23 13:50] LABS: CK-MB VALUE MASS 2.7 NG/ML (<3.6)
[2023-11-23 14:21] LABS: CPK CREATINE PHOSPHOKINASE 49 U/L (34-145); MB/CK RELATIVE INDEX 5.51 (< OR =4)
[2023-11-23 14:49] LABS: RSV AMPLIFICATION NEGATIVE (NEGATIVE)
[2023-11-23] MEDS: NS 500 ML IV ONE (15:36)
[2023-11-23 17:35] LABS: APPEARANCE, URINE CLEAR (CLEAR); BACTERIA, URINE AUTO NEGATIVE (NEGATIVE); BILIRUBIN, URINE AUTO NEGATIVE (NEGATIVE); BLOOD, URINE BLOOD 1+ (NEGATIVE); COLOR, URINE YELLOW (YELLOW); GLUCOSE, URINE (UA) AUTO NEGATIVE (NEGATIVE); KETONE, URINE AUTO 1+ mg/dL (NEGATIVE); LEUKOCYTE ESTERASE, URINE AUTO NEGATIVE (NEGATIVE); MUCUS, URINE SMALL (NEGATIVE); NITRITE, URINE AUTO NEGATIVE (NEGATIVE); PROTEIN, URINE AUTO NEGATIVE (NEGATIVE); RBC, URINE AUTO 17 /HPF (0-3); SQUAMOUS EPITHELIAL CELL UR AU 2 /HPF (0-6); UROBILINOGEN, URINE AUTO 0.2 mg/dL (0.0-2.0); WBC, URINE AUTO 3 /HPF (0-3)
[2023-11-23 17:36] LABS: SPECIFIC GRAVITY URINE AUTO >1.060 (1.002-1.035)
[2023-11-23 18:15] VITALS: BP 149/88; O2SAT 94
== END 2023-11-23 18:36 | disposition short-term general hospital (02) ==
LOC: M ED 11:15
DX: K56.609 Unspecified intestinal obstruction, unspecified as to partial versus complete obstruction (principal); R00.0 Tachycardia, unspecified; I10 Essential (primary) hypertension; E03.9 Hypothyroidism, unspecified; F41.9 Anxiety disorder, unspecified; C56.9 Malignant neoplasm of unspecified ovary; Z88.2 Allergy status to sulfonamides; Z79.1 Long term (current) use of non-steroidal anti-inflammatories (NSAID); Z79.899 Other long term (current) drug therapy
CPT/HCPCS: 71045; 74177; 80047; 80048; 80076; 81001; 82550; 82553; 83605; 83690; 84484; 85025; 87631; 93005; 93041; 96361; 96374; 96376; 99285; Q9963; Q9967

== ENCOUNTER → 2023-12-19 | Outpatient (CLI) | payer MEDICARE, BC ==
[~2023-12-19] MED LIST changes: +CYCL1CAP2 PO; +ELIQ5TAB; +ONDA8TAB8; +OXYC-517; +PANT40TA29; +advil PO
== END ==
LOC: M RAD 15:08
PROVIDERS: ATTEND Nurse Practitioner
DX: I10 Essential (primary) hypertension (principal)

== ENCOUNTER 2023-12-29 14:13 | Inpatient (IN) | payer MEDICARE ==
[~2023-12-29] VITALS: Ht 162.6 cm; Wt 82.5 kg
[~2023-12-29 14:13] MED LIST changes: -ELIQ5TAB; +ELIQ5TAB PO; +LEVO1TAB39 PO; -OXYC-517; -PANT40TA29; +PANT40TA29 PO
[2023-12-29 15:34] LABS: BASO % 0.1 % (0.0-1.0); HEMATOCRIT 30.2 % (36.0-47.0); HEMOGLOBIN 9.6 g/dl (12.0-15.5); LYMPH % 5.6 % (24.0-44.0); MEAN CORPUSCULAR HEMOGLOBIN 31.1 pg (27.0-33.0); MEAN CORPUSCULAR HGB CONC 31.8 g/dl (32.0-36.5); MEAN CORPUSCULAR VOLUME 97.7 fl (80.0-96.0); MONO % 6.9 % (2.0-8.0); NEUTROPHILS % 86.8 % (36.0-66.0); PLATELET COUNT, AUTOMATED 278 10^3/uL (150-450); RED BLOOD COUNT 3.09 10^6/uL (4.00-5.40); WHITE BLOOD COUNT 8.7 10^3/uL (4.0-10.0)
[2023-12-29 15:35] LABS: LYMPH # 0.5 10^3/uL (1.5-5.0); MONO # 0.6 10^3/uL (0.0-0.8); NEUTROPHILS # 7.6 10^3/uL (1.5-8.5)
[2023-12-29] MEDS: ONDANSETRON 4MG 2ML VIAL IV ONE (15:43)
[2023-12-29] MEDS: MORPHINE 2 MG/ML 1ML VIAL IV PRN (15:43)
[2023-12-29] MEDS: GASTROGRAFIN SOLUTION 30ML PO SCH (15:44)
[2023-12-29 15:48] LABS: INR 1.9; PARTIAL THROMBOPLASTIN TIME 40.5 SECONDS (24.8-34.2); PROTHROMBIN TIME 21.2 SECONDS (12.5-14.5)
[2023-12-29 15:52] LABS: LIPASE 14 U/L (12-53)
[2023-12-29 15:53] LABS: CK-MB VALUE MASS < 1.0 NG/ML (<3.6)
[2023-12-29 15:54] LABS: ALBUMIN 2.3 G/DL (3.2-5.2); ALKALINE PHOSPHATASE 125 U/L (46-116); ALT/SGPT 11 U/L (7.0-40); AST/SGOT 13 U/L (<34); BILIRUBIN,DIRECT 0.2 MG/DL (<0.4); BILIRUBIN,TOTAL 0.4 MG/DL (0.3-1.2); BLOOD UREA NITROGEN 26 MG/DL (9-23); CALCIUM LEVEL 7.7 MG/DL (8.3-10.6); CARBON DIOXIDE LEVEL 29 MMOL/L (20-31); CHLORIDE LEVEL 101 MMOL/L (98-107); CPK CREATINE PHOSPHOKINASE 48 U/L (34-145); CREATININE FOR GFR 0.72 MG/DL (0.55-1.30); GLOMERULAR FILTRATION RATE > 60.0 (>45); GLUCOSE, FASTING 132 MG/DL (74-106); MAGNESIUM LEVEL 2.2 MG/DL (1.8-2.4); MB/CK RELATIVE INDEX 2.08 (< OR =4); POTASSIUM SERUM 3.4 MMOL/L (3.5-5.1); SODIUM LEVEL 138 MMOL/L (136-145); TOTAL PROTEIN 5.2 G/DL (5.7-8.2)
[2023-12-29 15:57] LABS: AMYLASE < 20 U/L (30-118)
[2023-12-29] MEDS: NS 1,000 ML IV ONE (16:01)
[2023-12-29] MEDS: cefTRIAXone SOD 1 GM in D5W MINI-BAG PLUS 50 ML IV ONE (19:11)
[2023-12-29] MEDS ORDERED: ADVI200C8 PO (19:43)
[2023-12-29] MEDS ORDERED: ACET-910 PO (19:43)
[2023-12-29] MEDS ORDERED: HOME MED LIST COMPLETE! XX SCH (19:45)
[2023-12-29 22:57] VITALS: BP 130/90; TEMP 97.7; O2SAT 96
[2023-12-29] MEDS: PANTOPRAZOLE 40MG VIAL IV SCH (23:39)
[2023-12-29] MEDS: LR 1,000 ML IV SCH (23:40)
[2023-12-29] MEDS: KCL 10MEQ/100ML SWI (KRUN) 10 MEQ in IV 1 EA IV SCH (23:40)
[2023-12-29] MEDS: HYDROMORPHONE HCL 0.5 MG/ 0.5 ML SYRINGE IV PRN (23:50)
[2023-12-30 00:39] LABS: HEMATOCRIT 30.2 % (36.0-47.0); HEMOGLOBIN 9.3 g/dl (12.0-15.5)
[2023-12-30 05:05] VITALS: BP 158/98; TEMP 97.3; O2SAT 93
[2023-12-30] MEDS: cefTRIAXone SOD 2 GM in D5W MINI-BAG PLUS 50 ML IV SCH (06:13)
[2023-12-30] MEDS: LEVOTHYROXINE 50MCG TABLET (0.05MG) PO SCH (06:13)
[2023-12-30 07:11] LABS: BLOOD UREA NITROGEN 32 MG/DL (9-23); CALCIUM LEVEL 7.7 MG/DL (8.3-10.6); CARBON DIOXIDE LEVEL 26 MMOL/L (20-31); CHLORIDE LEVEL 102 MMOL/L (98-107); CREATININE FOR GFR 0.73 MG/DL (0.55-1.30); GLOMERULAR FILTRATION RATE > 60.0 (>45); GLUCOSE, FASTING 124 MG/DL (74-106); POTASSIUM SERUM 3.7 MMOL/L (3.5-5.1); SODIUM LEVEL 135 MMOL/L (136-145)
[2023-12-30 10:00] VITALS: BP 157/95; TEMP 97.7; O2SAT 96
[2023-12-30] MEDS: MORPHINE 4 MG/ML 1ML VIAL IV PRN (12:43)
[2023-12-30] MEDS: KETOROLAC 30 MG/ML 1ML VIAL IV PRN (12:43)
[2023-12-30 14:00] VITALS: BP 155/85; TEMP 97.3; O2SAT 94
[2023-12-30 18:00] VITALS: BP 153/83; TEMP 97.3; O2SAT 95
[2023-12-30 20:00] VITALS: BP 131/63; TEMP 97.1; O2SAT 97
[2023-12-31 01:16] VITALS: BP 139/67; TEMP 97.3; O2SAT 91
[2023-12-31 05:01] VITALS: BP 142/64; TEMP 97.2; O2SAT 95
[2023-12-31 08:20] LABS: ALKALINE PHOSPHATASE 107 U/L (46-116); ALT/SGPT 9 U/L (7.0-40); AST/SGOT 17 U/L (<34); BILIRUBIN,TOTAL 0.3 MG/DL (0.3-1.2); BLOOD UREA NITROGEN 25 MG/DL (9-23); CALCIUM LEVEL 7.7 MG/DL (8.3-10.6); CARBON DIOXIDE LEVEL 29 MMOL/L (20-31); CHLORIDE LEVEL 103 MMOL/L (98-107); CREATININE FOR GFR 0.65 MG/DL (0.55-1.30); GLOMERULAR FILTRATION RATE > 60.0 (>45); GLUCOSE, FASTING 94 MG/DL (74-106); POTASSIUM SERUM 3.8 MMOL/L (3.5-5.1); SODIUM LEVEL 136 MMOL/L (136-145); TOTAL PROTEIN 4.5 G/DL (5.7-8.2)
[2023-12-31] MEDS: SODIUM CHLORIDE 0.9% INJ 10 ML SYR IV SCH (08:39)
[2023-12-31 08:53] LABS: HEMATOCRIT 24.9 % (36.0-47.0); HEMOGLOBIN 7.8 g/dl (12.0-15.5); LYMPH # 0.5 10^3/uL (1.5-5.0); LYMPH % 8.8 % (24.0-44.0); MEAN CORPUSCULAR HEMOGLOBIN 31.3 pg (27.0-33.0); MEAN CORPUSCULAR HGB CONC 31.3 g/dl (32.0-36.5); MONO # 0.5 10^3/uL (0.0-0.8); MONO % 8.1 % (2.0-8.0); NEUTROPHILS # 4.6 10^3/uL (1.5-8.5); NEUTROPHILS % 82.4 % (36.0-66.0); PLATELET COUNT, AUTOMATED 193 10^3/uL (150-450); RED BLOOD COUNT 2.49 10^6/uL (4.00-5.40); WHITE BLOOD COUNT 5.6 10^3/uL (4.0-10.0)
[2023-12-31 10:00] VITALS: BP 167/74; TEMP 97.7; O2SAT 93
[2023-12-31 14:00] VITALS: BP 155/83; TEMP 97.5; O2SAT 94
[2023-12-31 18:00] VITALS: BP 162/68; TEMP 97.5; O2SAT 94
[2023-12-31 21:10] VITALS: BP 148/66; TEMP 97.5; O2SAT 94
[2024-01-01] VITALS (7 sets, daily range): BP systolic 137–176; BP diastolic 63–93; TEMP 97.3–97.7; O2SAT 92–96
[2024-01-01 08:17] LABS: LDH LACTATE DEHYDROGENASE 326 U/L (120-246)
[2024-01-01 08:30] LABS: HEMATOCRIT 28.5 % (36.0-47.0); HEMOGLOBIN 8.9 g/dl (12.0-15.5); MEAN CORPUSCULAR HEMOGLOBIN 31.1 pg (27.0-33.0); MEAN CORPUSCULAR HGB CONC 31.2 g/dl (32.0-36.5); MEAN CORPUSCULAR VOLUME 99.7 fl (80.0-96.0); PLATELET COUNT, AUTOMATED 233 10^3/uL (150-450); RED BLOOD COUNT 2.86 10^6/uL (4.00-5.40); WHITE BLOOD COUNT 6.9 10^3/uL (4.0-10.0)
[2024-01-01 08:54] LABS: BLOOD UREA NITROGEN 18 MG/DL (9-23); CALCIUM LEVEL 7.9 MG/DL (8.3-10.6); CARBON DIOXIDE LEVEL 28 MMOL/L (20-31); CHLORIDE LEVEL 102 MMOL/L (98-107); CREATININE FOR GFR 0.53 MG/DL (0.55-1.30); GLOMERULAR FILTRATION RATE > 60.0 (>45); GLUCOSE, FASTING 127 MG/DL (74-106); POTASSIUM SERUM 3.4 MMOL/L (3.5-5.1); SODIUM LEVEL 135 MMOL/L (136-145)
[2024-01-01] MEDS: SIMETHICONE 80MG CHEW TAB PO SCH (12:12)
[2024-01-01] MEDS: SODIUM CHLORIDE 0.9% INJ 10 ML SYR IV PRN (12:14)
[2024-01-01] MEDS: ONDANSETRON 4MG 2ML VIAL IV PRN (13:18)
[2024-01-01 14:36] LABS: HEMOGLOBIN 8.8 g/dl (12.0-15.5); MEAN CORPUSCULAR HGB CONC 31.4 g/dl (32.0-36.5); MEAN CORPUSCULAR VOLUME 98.6 fl (80.0-96.0); PLATELET COUNT, AUTOMATED 237 10^3/uL (150-450); RED BLOOD COUNT 2.84 10^6/uL (4.00-5.40)
[2024-01-01] MEDS: IBUPROFEN 400MG TAB PO PRN (17:26)
[2024-01-01] MEDS: BISACODYL 10MG SUPP PR SCH (21:37)
[2024-01-01] MEDS: IBUPROFEN 600MG TAB PO PRN (21:37)
[2024-01-02] VITALS (12 sets, daily range): BP systolic 129–142; BP diastolic 62–76; TEMP 97.3–97.7; O2SAT 89–96
[2024-01-02] MEDS: oxyCODONE 5MG TAB PO PRN ×2 (00:39→12:23)
[2024-01-02 08:56] LABS: HEMATOCRIT 28.8 % (36.0-47.0); MEAN CORPUSCULAR HGB CONC 31.3 g/dl (32.0-36.5); MEAN CORPUSCULAR VOLUME 99.3 fl (80.0-96.0); PLATELET COUNT, AUTOMATED 254 10^3/uL (150-450); WHITE BLOOD COUNT 6.5 10^3/uL (4.0-10.0)
[2024-01-02 09:19] LABS: BLOOD UREA NITROGEN 15 MG/DL (9-23); CALCIUM LEVEL 7.7 MG/DL (8.3-10.6); CARBON DIOXIDE LEVEL 25 MMOL/L (20-31); CHLORIDE LEVEL 102 MMOL/L (98-107); CREATININE FOR GFR 0.55 MG/DL (0.55-1.30); GLOMERULAR FILTRATION RATE > 60.0 (>45); GLUCOSE, FASTING 117 MG/DL (74-106); POTASSIUM SERUM 3.5 MMOL/L (3.5-5.1); SODIUM LEVEL 136 MMOL/L (136-145)
[2024-01-02 09:20] LABS: INR 1.22; PARTIAL THROMBOPLASTIN TIME 50.7 SECONDS (24.8-34.2)
[2024-01-02] MEDS: APIXABAN 5 MG TAB (ELIQUIS) PO SCH (13:19)
[2024-01-02] MEDS ORDERED: MORPHINE 10 MG/ML 1ML VIAL As Ordered ONE (15:36)
[2024-01-02] MEDS: MORPHINE 4 MG/ML 1ML VIAL IV ONE (15:40)
[2024-01-02] MEDS ORDERED: ONDANSETRON 4MG 2ML VIAL As Ordered ONE (15:45)
[2024-01-02] MEDS: ONDANSETRON 4MG 2ML VIAL IV PRN (16:04)
[2024-01-02 16:25] LABS: APPEARANCE, BODY FLUID HAZY (CLEAR); ASCITES FL COLOR PALE YELLOW (COLORLESS); SOURCE, BODY FLUID ASCITES
[2024-01-02 16:37] LABS: SOURCE, BODY FLUID ALBUMIN ASCITES
[2024-01-02 16:42] LABS: SOURCE, BODY FLUID GLUCOSE ASCITES
[2024-01-02 16:44] LABS: SOURCE, BODY FLUID TOT PROTEIN ASCITES; TOTAL PROTEIN, BODY FLUID 2.7 G/DL (NOT ESTABLISHED)
[2024-01-02] MEDS: FLEET OIL RETENTION ENEMA PR SCH (17:43)
[2024-01-02] MEDS ORDERED: PANTOPRAZOLE 40MG TAB (PROTONIX) PO SCH (21:00)
[2024-01-02] MEDS: PANTOPRAZOLE 40MG VIAL IV SCH (21:42)
[2024-01-02] MEDS: NS 1,000 ML IV ONE (21:42)
[2024-01-02] MEDS: HYDROMORPHONE HCL 0.5 MG/ 0.5 ML SYRINGE IV PRN (21:43)
[2024-01-02] MEDS: METOCLOPRAMIDE INJ 10MG/2ML VIAL IV PRN (21:59)
[2024-01-02] MEDS: NS 500 ML IV ONE (23:53)
[2024-01-03 02:07] VITALS: BP 145/65; TEMP 97.5; O2SAT 95
[2024-01-03 05:20] VITALS: BP 140/84; TEMP 97.5; O2SAT 96
[2024-01-03 08:05] LABS: HEMATOCRIT 31.2 % (36.0-47.0); HEMOGLOBIN 9.8 g/dl (12.0-15.5); MEAN CORPUSCULAR HGB CONC 31.4 g/dl (32.0-36.5); MEAN CORPUSCULAR VOLUME 98.7 fl (80.0-96.0); PLATELET COUNT, AUTOMATED 263 10^3/uL (150-450); RED BLOOD COUNT 3.16 10^6/uL (4.00-5.40); WHITE BLOOD COUNT 6.9 10^3/uL (4.0-10.0)
[2024-01-03 08:25] LABS: ALBUMIN 1.9 G/DL (3.2-5.2); ALKALINE PHOSPHATASE 115 U/L (46-116); ALT/SGPT 10 U/L (7.0-40); AST/SGOT 17 U/L (<34); BILIRUBIN,DIRECT 0.2 MG/DL (<0.4); BILIRUBIN,TOTAL 0.4 MG/DL (0.3-1.2); BLOOD UREA NITROGEN 16 MG/DL (9-23); CALCIUM LEVEL 7.6 MG/DL (8.3-10.6); CARBON DIOXIDE LEVEL 23 MMOL/L (20-31); CHLORIDE LEVEL 104 MMOL/L (98-107); CREATININE FOR GFR 0.58 MG/DL (0.55-1.30); GLOMERULAR FILTRATION RATE > 60.0 (>45); GLUCOSE, FASTING 123 MG/DL (74-106); POTASSIUM SERUM 3.3 MMOL/L (3.5-5.1); SODIUM LEVEL 137 MMOL/L (136-145); TOTAL PROTEIN 4.8 G/DL (5.7-8.2)
[2024-01-03] MEDS: FLEET OIL RETENTION ENEMA PR SCH (09:00)
[2024-01-03] MEDS: SPIRONOLACTONE 50 MG TAB PO SCH (09:05)
[2024-01-03] MEDS: FUROSEMIDE 40 MG TAB PO SCH (09:05)
[2024-01-03] MEDS ORDERED: ISOVUE-370 76% 100ML VIAL As Ordered ONE (09:55)
[2024-01-03 10:00] VITALS: BP 159/72; TEMP 97.5; O2SAT 94
[2024-01-03] MEDS ORDERED: BISACODYL 10MG SUPP PR SCH (12:00)
[2024-01-03] MEDS: LACTULOSE 20GM/30ML SYRUP UDC PO SCH (12:55)
[2024-01-03] MEDS: ACETAMINOPHEN 500 MG TAB PO SCH (12:56)
[2024-01-03] MEDS: BISACODYL 10MG SUPP PR SCH (12:56)
[2024-01-03 14:00] VITALS: BP 154/58; TEMP 97.3; O2SAT 95
[2024-01-03 18:00] VITALS: BP 133/81; TEMP 97.3; O2SAT 96
[2024-01-03 20:55] VITALS: BP 129/55; TEMP 97; O2SAT 94
[2024-01-04] VITALS (11 sets, daily range): BP systolic 119–186; BP diastolic 70–87; TEMP 97.2–97.7; O2SAT 92–96
[2024-01-04 09:30] LABS: BASO % 0.1 % (0.0-1.0); HEMATOCRIT 33.3 % (36.0-47.0); HEMOGLOBIN 10.3 g/dl (12.0-15.5); LYMPH # 0.5 10^3/uL (1.5-5.0); LYMPH % 6.2 % (24.0-44.0); MEAN CORPUSCULAR HEMOGLOBIN 30.4 pg (27.0-33.0); MEAN CORPUSCULAR HGB CONC 30.9 g/dl (32.0-36.5); MEAN CORPUSCULAR VOLUME 98.2 fl (80.0-96.0); MONO # 0.6 10^3/uL (0.0-0.8); MONO % 7.8 % (2.0-8.0); NEUTROPHILS % 84.9 % (36.0-66.0); PLATELET COUNT, AUTOMATED 272 10^3/uL (150-450); RED BLOOD COUNT 3.39 10^6/uL (4.00-5.40); WHITE BLOOD COUNT 8.3 10^3/uL (4.0-10.0)
[2024-01-04 10:00] LABS: BILIRUBIN,DIRECT 0.1 MG/DL (<0.4); BILIRUBIN,TOTAL 0.3 MG/DL (0.3-1.2); CALCIUM LEVEL 7.9 MG/DL (8.3-10.6); CREATININE FOR GFR 0.99 MG/DL (0.55-1.30); GLOMERULAR FILTRATION RATE 59.9 (>45); POTASSIUM SERUM 3.6 MMOL/L (3.5-5.1); TOTAL PROTEIN 4.9 G/DL (5.7-8.2)
[2024-01-04] MEDS: SCOPOLAMINE 1MG TRANSDERMAL PATCH TOP SCH (11:04)
[2024-01-04] MEDS: LACTULOSE 20GM/30ML SYRUP UDC PO SCH (11:05)
[2024-01-04] MEDS: FUROSEMIDE 20MG/2ML VIAL IV ONE (11:06)
[2024-01-04] MEDS: METHYLNALTREXONE BROMIDE 12MG/0.6ML VIAL (RELISTOR) SC SCH (12:05)
[2024-01-04] MEDS: ONDANSETRON 4MG 2ML VIAL IV SCH (12:06)
[2024-01-04 15:37] LABS: HEMATOCRIT 36.8 % (36.0-47.0); HEMOGLOBIN 11.2 g/dl (12.0-15.5); MEAN CORPUSCULAR HEMOGLOBIN 31.2 pg (27.0-33.0); MEAN CORPUSCULAR HGB CONC 30.4 g/dl (32.0-36.5); MEAN CORPUSCULAR VOLUME 102.5 fl (80.0-96.0); PLATELET COUNT, AUTOMATED 263 10^3/uL (150-450); RED BLOOD COUNT 3.59 10^6/uL (4.00-5.40); WHITE BLOOD COUNT 10.2 10^3/uL (4.0-10.0)
[2024-01-04] MEDS ORDERED: ROCURONIUM BROMIDE 50MG/5ML VIAL As Ordered ONE (17:22)
[2024-01-04] MEDS ORDERED: SUCCINYLCHOLINE 100MG/5ML SYRINGE As Ordered ONE (17:22)
[2024-01-04] MEDS ORDERED: LIDOCAINE 2% 100MG/5ML SDV (FOR ANES.) As Ordered ONE (17:22)
[2024-01-04] MEDS ORDERED: fentaNYL 100 MCG/2 ML INJECTION As Ordered ONE (17:22)
[2024-01-04] MEDS ORDERED: propofoL 200 MG/20 ML VIAL As Ordered ONE (17:22)
[2024-01-04] MEDS ORDERED: MIDAZOLAM INJ 2MG/2ML VIAL As Ordered ONE (17:26)
[2024-01-04] MEDS ORDERED: ePHEDrine SULFATE 25 MG/5 ML(5MG/ML) SYRINGE As Ordered ONE (17:30)
[2024-01-04] MEDS ORDERED: PHENYLephrine 500MCG 5ML (100MCG/ML) SYRINGE As Ordered ONE (17:30)
[2024-01-04] MEDS ORDERED: SCOPOLAMINE 1MG TRANSDERMAL PATCH As Ordered ONE (17:34)
[2024-01-04] MEDS ORDERED: SUGAMMADEX SODIUM 500 MG/5 ML VIAL (BRIDION) As Ordered ONE (17:58)
[2024-01-04] MEDS: FUROSEMIDE 40MG/4ML VIAL IV SCH (20:26)
[2024-01-04] MEDS: METOCLOPRAMIDE INJ 10MG/2ML VIAL IV SCH (20:26)
[2024-01-04] MEDS: oxyCODONE 5MG TAB PO PRN (20:30)
[2024-01-04 21:57] LABS: HEMOGLOBIN 10.1 g/dl (12.0-15.5); MEAN CORPUSCULAR HEMOGLOBIN 30.9 pg (27.0-33.0); MEAN CORPUSCULAR HGB CONC 32.6 g/dl (32.0-36.5); MEAN CORPUSCULAR VOLUME 94.8 fl (80.0-96.0); PLATELET COUNT, AUTOMATED 280 10^3/uL (150-450); RED BLOOD COUNT 3.27 10^6/uL (4.00-5.40); WHITE BLOOD COUNT 8.5 10^3/uL (4.0-10.0)
[2024-01-05 00:10] VITALS: BP 146/63; TEMP 97.3; O2SAT 93
[2024-01-05 04:10] VITALS: BP 139/65; TEMP 97.5; O2SAT 94
[2024-01-05] MEDS ORDERED: LR 1,000 ML IV SCH (07:50)
[2024-01-05 08:10] VITALS: BP 124/65; TEMP 97.5; O2SAT 93
[2024-01-05 08:49] LABS: BASO % 0.1 % (0.0-1.0); HEMATOCRIT 30.2 % (36.0-47.0); HEMOGLOBIN 9.6 g/dl (12.0-15.5); LYMPH # 0.5 10^3/uL (1.5-5.0); LYMPH % 7.3 % (24.0-44.0); MEAN CORPUSCULAR HEMOGLOBIN 30.7 pg (27.0-33.0); MEAN CORPUSCULAR HGB CONC 31.8 g/dl (32.0-36.5); MEAN CORPUSCULAR VOLUME 96.5 fl (80.0-96.0); MONO # 0.6 10^3/uL (0.0-0.8); MONO % 8.1 % (2.0-8.0); NEUTROPHILS % 83.4 % (36.0-66.0); PLATELET COUNT, AUTOMATED 263 10^3/uL (150-450); RED BLOOD COUNT 3.13 10^6/uL (4.00-5.40); WHITE BLOOD COUNT 7.2 10^3/uL (4.0-10.0)
[2024-01-05 09:13] LABS: ALBUMIN 1.9 G/DL (3.2-5.2); BILIRUBIN,TOTAL 0.3 MG/DL (0.3-1.2); CREATININE FOR GFR 1.43 MG/DL (0.55-1.30); GLOMERULAR FILTRATION RATE 39.2 (>45); POTASSIUM SERUM 3.8 MMOL/L (3.5-5.1); TOTAL PROTEIN 4.9 G/DL (5.7-8.2)
[2024-01-05 09:20] LABS: INR 1.37; PROTHROMBIN TIME 16.5 SECONDS (12.5-14.5)
[2024-01-05 12:10] VITALS: TEMP 97.5; O2SAT 96
[2024-01-05] MEDS ORDERED: METOCLOPRAMIDE INJ 10MG/2ML VIAL IV PRN (14:40)
[2024-01-05] MEDS: LR 1,000 ML IV SCH (14:40)
[2024-01-05 16:10] VITALS: BP 113/63; TEMP 97.7; O2SAT 94
[2024-01-05 20:10] VITALS: BP 129/63; TEMP 97.5; O2SAT 96
[2024-01-06] VITALS (10 sets, daily range): BP systolic 104–137; BP diastolic 62–96; TEMP 97.3–98.1; O2SAT 95–97
[2024-01-06] MEDS ORDERED: HYDROmorphone HCL 2MG/ML 1ML VIAL As Ordered ONE (07:12)
[2024-01-06] MEDS ORDERED: ACETAMINOPHEN 1000MG 100ML IV BAG As Ordered ONE (07:15)
[2024-01-06] MEDS ORDERED: KETOROLAC 60MG 2ML VIAL As Ordered ONE (07:15)
[2024-01-06] MEDS ORDERED: oxyCODONE 5MG TAB PO PRN (10:45)
[2024-01-06] MEDS ORDERED: HYDROMORPHONE HCL 0.5 MG/ 0.5 ML SYRINGE IV PRN (10:45)
[2024-01-06] MEDS ORDERED: fentaNYL 100 MCG/2 ML INJECTION IV PRN (10:45)
[2024-01-06] MEDS ORDERED: METOPROLOL 5 MG/5 ML VIAL As Ordered ONE (11:09)
[2024-01-06] MEDS: ONDANSETRON 4MG 2ML VIAL IV PRN (11:09)
[2024-01-06] MEDS: METOPROLOL 5 MG/5 ML VIAL IV STA (11:11)
[2024-01-06 12:25] LABS: HEMATOCRIT 31.3 % (36.0-47.0); HEMOGLOBIN 9.9 g/dl (12.0-15.5); MEAN CORPUSCULAR HEMOGLOBIN 30.4 pg (27.0-33.0); MEAN CORPUSCULAR HGB CONC 31.6 g/dl (32.0-36.5); PLATELET COUNT, AUTOMATED 317 10^3/uL (150-450); RED BLOOD COUNT 3.26 10^6/uL (4.00-5.40); WHITE BLOOD COUNT 12.5 10^3/uL (4.0-10.0)
[2024-01-06] MEDS: ACETAMINOPHEN 500 MG TAB PO SCH (12:30)
[2024-01-06] MEDS: LR 1,000 ML IV SCH ×2 (12:36→13:00)
[2024-01-06 12:54] LABS: CALCIUM LEVEL 7.2 MG/DL (8.3-10.6); CREATININE FOR GFR 1.28 MG/DL (0.55-1.30); GLOMERULAR FILTRATION RATE 44.6 (>45); POTASSIUM SERUM 4.4 MMOL/L (3.5-5.1)
[2024-01-06 12:55] LABS: ALBUMIN 1.7 G/DL (3.2-5.2); CALCIUM LEVEL 7.3 MG/DL (8.3-10.6); CREATININE FOR GFR 1.27 MG/DL (0.55-1.30); PHOSPHORUS LEVEL 4.8 MG/DL (2.4-5.1); POTASSIUM SERUM 4.6 MMOL/L (3.5-5.1)
[2024-01-07 01:29] VITALS: BP 137/47; TEMP 97.5; O2SAT 97
[2024-01-07 05:00] VITALS: BP 142/93; TEMP 97.3; O2SAT 96
[2024-01-07 06:54] LABS: HEMATOCRIT 32.6 % (36.0-47.0); HEMOGLOBIN 9.2 g/dl (12.0-15.5); MEAN CORPUSCULAR HEMOGLOBIN 30.4 pg (27.0-33.0); MEAN CORPUSCULAR HGB CONC 28.2 g/dl (32.0-36.5); MEAN CORPUSCULAR VOLUME 107.6 fl (80.0-96.0); PLATELET COUNT, AUTOMATED 222 10^3/uL (150-450); RED BLOOD COUNT 3.03 10^6/uL (4.00-5.40); WHITE BLOOD COUNT 8.9 10^3/uL (4.0-10.0)
[2024-01-07 07:10] LABS: ALBUMIN 1.7 G/DL (3.2-5.2); CALCIUM LEVEL 7.3 MG/DL (8.3-10.6); CREATININE FOR GFR 1.75 MG/DL (0.55-1.30); GLOMERULAR FILTRATION RATE 31.1 (>45); MAGNESIUM LEVEL 1.8 MG/DL (1.8-2.4); PHOSPHORUS LEVEL 5.9 MG/DL (2.4-5.1)
[2024-01-07 08:04] VITALS: BP 135/55
[2024-01-07 10:12] VITALS: BP 145/93; TEMP 97; O2SAT 98
[2024-01-07] MEDS: SODIUM BICARBONATE 75 MEQ in NS 0.45% 1,000 ML IV SCH (11:00)
[2024-01-07] MEDS ORDERED: LORazepam 2 MG/ML 1ML VIAL IV PRN (14:20)
[2024-01-07] MEDS ORDERED: HYOSCYAMINE SULFATE 0.125 MG SUBL TABLET PO PRN (14:20)
[2024-01-07] MEDS: MORPHINE 10MG/0.5ML ORAL CONCENTRATE SOLUTION U/D SL PRN (14:32)
[2024-01-08] MEDS: MAALOX 30 ML SUSP *UDC PO PRN (22:15)
[2024-01-09] MEDS: ONDANSETRON 4MG 2ML VIAL IV PRN (11:42)
[2024-01-09] MEDS ORDERED: HYOS125TA PO (18:34)
[2024-01-09] MEDS ORDERED: ATIV1TAB10 PO (18:34)
[2024-01-09] MEDS ORDERED: MORP1SOL5 PO (18:34)
[2024-01-09] MEDS: PANTOPRAZOLE 20 MG TAB PO SCH (20:19)
[2024-01-09] MEDS ORDERED: FAMOTIDINE 20 MG TAB PO SCH (21:00)
[2024-01-10] MEDS: METOCLOPRAMIDE INJ 10MG/2ML VIAL IV ONE (12:31)
== END 2024-01-10 12:49 | disposition hospice, home (50) | DRG 330 ==
LOC: M ED 14:13 → M ED INP 21:46 → M MSPAV 22:40
PROVIDERS: ADMIT Internal Medicine; ATTEND Internal Medicine
PROC: 0W9G3ZX Drainage of Peritoneal Cavity, Percutaneous Approach, Diagnostic (ICD-10-PCS; 2024-01-02)
PROC: 0DBP8ZX Excision of Rectum, Via Natural or Artificial Opening Endoscopic, Diagnostic (ICD-10-PCS; 2024-01-04)
PROC: 0D1 Gastrointestinal System, Bypass (ICD-10-PCS; principal; 2024-01-06 08:00)
DX: C78.5 Secondary malignant neoplasm of large intestine and rectum (principal); C56.1 Malignant neoplasm of right ovary; C78.7 Secondary malignant neoplasm of liver and intrahepatic bile duct; C78.6 Secondary malignant neoplasm of retroperitoneum and peritoneum; J98.11 Atelectasis; R18.0 Malignant ascites; J90 Pleural effusion, not elsewhere classified; N17.9 Acute kidney failure, unspecified; K56.7 Ileus, unspecified; C78.4 Secondary malignant neoplasm of small intestine; E46 Unspecified protein-calorie malnutrition; E87.20 Acidosis, unspecified; K92.2 Gastrointestinal hemorrhage, unspecified; E87.1 Hypo-osmolality and hyponatremia; C77.9 Secondary and unspecified malignant neoplasm of lymph node, unspecified; K21.9 Gastro-esophageal reflux disease without esophagitis; E03.9 Hypothyroidism, unspecified; I10 Essential (primary) hypertension; K64.9 Unspecified hemorrhoids; E83.42 Hypomagnesemia; Z51.5 Encounter for palliative care; Z66 Do not resuscitate; K57.90 Diverticulosis of intestine, part unspecified, without perforation or abscess without bleeding; K44.9 Diaphragmatic hernia without obstruction or gangrene; D63.0 Anemia in neoplastic disease; K62.89 Other specified diseases of anus and rectum; N30.90 Cystitis, unspecified without hematuria; G89.3 Neoplasm related pain (acute) (chronic); E88.09 Other disorders of plasma-protein metabolism, not elsewhere classified; E87.6 Hypokalemia; D50.0 Iron deficiency anemia secondary to blood loss (chronic); R09.02 Hypoxemia; Z79.01 Long term (current) use of anticoagulants; Z79.899 Other long term (current) drug therapy; Z79.890 Hormone replacement therapy; Z88.2 Allergy status to sulfonamides; Z86.718 Personal history of other venous thrombosis and embolism; Z98.0 Intestinal bypass and anastomosis status; Z90.49 Acquired absence of other specified parts of digestive tract; Z92.21 Personal history of antineoplastic chemotherapy